=== PATIENT | female | born 1965 | race Caucasian/White ===

== ENCOUNTER → 2016-12-18 | Outpatient (CLI) | payer OTHER ==
[~2016-12-18] MED LIST: ATOR20TA9 PO; CABE0.5T PO; GABA300C10 PO; LEVO100C2 PO; LIOT5TAB3 PO; OMEP-110 PO; SERT50TA5 PO; TEMA15CA PO
== END | disposition home or self-care (01) ==
LOC: CFH 10:32
PROVIDERS: ATTEND Family Medicine
DX: Z12.31 Encounter for screening mammogram for malignant neoplasm of breast (principal)
CPT/HCPCS: 77063; G0202

== ENCOUNTER 2016-12-24 10:01 | Observation (INO) | payer OTHER ==
[~2016-12-24] VITALS: Ht 162.6 cm; Wt 86.0 kg
[~2016-12-24 10:01] MED LIST changes: +BUPIVACAINE/PF 0.5% ONE
[2016-12-24 10:27] VITALS: BP 122/87
[2016-12-24] MEDS ORDERED: LACTATED RINGERS 1,000 ML IV SCH (10:41)
[2016-12-24] MEDS ORDERED: KETAMINE 10 MG/ML, 20ML ONE (11:08)
[2016-12-24] MEDS ORDERED: FENTANYL PF 250 MCG/5ML ONE (11:08)
[2016-12-24 11:20] LABS: HCG UR OBC PASS
[2016-12-24] MEDS ORDERED: MIDAZOLAM 1 MG/ML, 2ML IV PRN (12:00)
[2016-12-24] MEDS ORDERED: LABETALOL 5MG/ML, 20ML IV PRN (12:00)
[2016-12-24] MEDS ORDERED: PROMETHAZINE 25 MG/ML, 1ML IV PRN (12:00)
[2016-12-24] MEDS ORDERED: ONDANSETRON 2MG/ML, 2ML IVPush PRN ×2 (12:00→16:00)
[2016-12-24] MEDS ORDERED: OXYcodone 5 MG/5 ML ORAL.SOL UDC PO PRN (12:00)
[2016-12-24] MEDS ORDERED: hydrALAzine 20 MG/ML, 1ML IV PRN (12:00)
[2016-12-24] MEDS ORDERED: FENTANYL PF 100 MCG/2ML ONE (13:42)
[2016-12-24] MEDS: FENTANYL PF 100 MCG/2ML IV PRN ×2 (13:45→13:51)
[2016-12-24] MEDS ORDERED: ONDANSETRON 2MG/ML, 2ML ONE ×2 (13:59→15:52)
[2016-12-24] MEDS ORDERED: MEPERIDINE/PF 25MG/0.5ML ONE ×2 (13:59→14:37)
[2016-12-24] MEDS: MEPERIDINE/PF 25MG/0.5ML IVPush PRN ×2 (14:03→14:38)
[2016-12-24] MEDS ORDERED: HYDROmorphone 2 MG/ML, 1ML ONE (14:09)
[2016-12-24] MEDS: HYDROmorphone 1 MG/ML, 1ML IV PRN ×3 (14:11→14:54)
[2016-12-24] MEDS ORDERED: OXYcodone 5 MG/5 ML ORAL.SOL UDC ONE (14:44)
[2016-12-24] MEDS ORDERED: METOCLOPRAMIDE 5 MG/ML, 2ML ONE (15:52)
[2016-12-24] MEDS ORDERED: CEFAZOLIN 1,000 MG ONE (15:52)
[2016-12-24] MEDS ORDERED: DEXAMETHASONE 4 MG/ML, 1ML ONE (15:52)
[2016-12-24] MEDS ORDERED: PROPOFOL 10 MG/ML, 20ML ONE (15:52)
[2016-12-24] MEDS ORDERED: ROCURONIUM 10 MG/ML ONE (15:52)
[2016-12-24] MEDS ORDERED: MEPERIDINE/PF 50 MG/ML IV PRN (16:00)
[2016-12-24] MEDS ORDERED: PLEASE ENTER ALLERGIES MC SCH ×2 (16:00)
[2016-12-24] MEDS: OXYcodone/APAP 5/325MG TABLET PO PRN ×2 (18:17→22:19)
[2016-12-24 19:31] VITALS: BP 106/64
[2016-12-24] MEDS: LACTATED RINGERS 1,000 ML IV SCH ×2 (22:18→22:21)
[2016-12-24] MEDS: ENOXAPARIN 30 MG/0.3 ML SQ SCH (22:19)
[2016-12-24] MEDS: GABAPENTIN 300 MG CAPSULE PO SCH (22:19)
[2016-12-24] MEDS ORDERED: TEMAZEPAM 15 MG CAPSULE PO PRN (23:00)
[2016-12-24] MEDS ORDERED: ALUMINUM/MAG/SIMETHICONE 30 ML UDC PO PRN (23:00)
[2016-12-24 23:29] VITALS: BP 122/77
[2016-12-25 01:47] VITALS: BP 153/76
[2016-12-25 01:49] VITALS: BP 111/72
[2016-12-25] MEDS: OXYcodone/APAP 5/325MG TABLET PO PRN ×5 (02:16→16:17)
[2016-12-25 07:20] VITALS: BP 123/68
[2016-12-25 07:25] VITALS: BP 97/60
[2016-12-25] MEDS ORDERED: OMEPRAZOLE 20 MG CAPSULE.DR PO SCH (09:00)
[2016-12-25] MEDS ORDERED: SERTRALINE 50MG TABLET PO SCH (09:00)
[2016-12-25] MEDS: GABAPENTIN 300 MG CAPSULE PO SCH (09:31)
[2016-12-25] MEDS: ENOXAPARIN 30 MG/0.3 ML SQ SCH (09:32)
[2016-12-25] MEDS: LACTATED RINGERS 1,000 ML IV SCH (09:40)
[2016-12-25 14:21] VITALS: BP 109/70
[2016-12-25 16:31] VITALS: BP 113/76
== END 2016-12-25 16:52 | disposition home or self-care (01) ==
LOC: OUT 10:01 → 4NOR 15:28 → OUT 20:16 → 4NOR 20:16 → DCLOUNGE 12-25 16:27
PROVIDERS: ADMIT Plastic Surgery; ATTEND Plastic Surgery
DX: N62 Hypertrophy of breast (principal); D68.51 Activated protein C resistance; M54.2 Cervicalgia; M54.9 Dorsalgia, unspecified; M25.519 Pain in unspecified shoulder; Z86.711 Personal history of pulmonary embolism
CPT/HCPCS: 19318; 81025; 88305; 96372; C1729; G0378; J0690; J1100; J1170; J1650; J2175; J2405; J2704; J2765; J3010; J3490; J7120